=== PATIENT | female | born 1985 | race African-American/Black ===

== ENCOUNTER 2017-10-07 12:59 | Emergency (ER) | payer OTHER ==
[~2017-10-07] VITALS: Ht 170.2 cm; Wt 76.2 kg
--- NOTE | 2017-10-07 13:54 | NUR ---
PATIENT WAS SEEN BY MD FOR MULTIPLE COMLAINTS. PT IS AWAKE, ALERT, ORIENTED X4 IN NO DISTRESS.
--- NOTE | 2017-10-07 14:18 | NUR ---
DC AND FOLLOW UP INSTRUCTIONS GIVEN AND EXPLAINED TO PATIENT WHO STATES SHE UNDERSTANDS ALL INSTRUCTIONS
== END 2017-10-07 14:22 | disposition home or self-care (01) ==
LOC: ER 12:59
DX: N64.4 Mastodynia (principal); R51 Headache; Z87.42 Personal history of other diseases of the female genital tract
CPT/HCPCS: 93005; A4663